=== PATIENT | female | born 1945 ===

== ENCOUNTER 2016-09-06 12:22 | Observation (INO) | payer MEDICARE, OTHER ==
[2016-09-06 12:50] VITALS: BMI 27.4
[2016-09-06] MEDS ORDERED: Sodium Chloride 0.9% 1,000 ML IV STA (13:18)
--- NOTE | 2016-09-06 13:22 | ED PDOC ---
Arrival/HPI - General Chief Complaint: Dizziness/Lightheaded Time Seen by Provider: 09/06/16 13:16 Historian: Patient - History of Present Illness Narrative History of Present Illness (Text): 09/06/16 13:19 A 70 year old female presents to the Emergency department complaining of sudden onset dizziness early this morning. Patient reports feeling better when lying down and worse upon standing. Patient denies nausea, vomiting, or any other complaints at this time. Time/Duration: 4-6 hours Symptom Onset: Sudden Symptom Course: Unchanged Activities at Onset: Rest Modifying Factors (Text): better when lying down, worse upon standing Context: Home Associated Symptoms (Text): none Past Medical History - Provider Review Nursing Documentation Reviewed: Yes - Infectious Disease Hx of Infectious Diseases: None - Tetanus Immunization Tetanus Immunization: Unknown - Cardiac Hx Hypertension: Yes Hx Pacemaker: No - Neurological Hx Paralysis: No - Renal Hx Renal Disorder: No - Endocrine/Metabolic Hx Hypothyroidism: Yes - Hematological/Oncological Hx Blood Transfusions: No Hx Blood Transfusion Reaction: No - Musculoskeletal/Rheumatological Hx Musculoskeletal Disorders: Yes - Psychiatric Hx Depression: Yes Hx Emotional Abuse: No Hx Physical Abuse: No Hx Substance Use: No - Surgical History Hx Section: Yes Hx Hysterectomy: Yes Hx Mastectomy: Yes (lumpectomy) - Anesthesia Hx Anesthesia: Yes Hx Anesthesia Reactions: No Hx Malignant Hyperthermia: No - Suicidal Assessment Feels Threatened In Home Enviroment: No Family/Social History - Physician Review Nursing Documentation Reviewed: Yes Family/Social History: No Known Family HX Smoking Status: Never Smoked Hx Alcohol Use: No Hx Substance Use: No Hx Substance Use Treatment: No Allergies/Home Meds Allergies/Adverse Reactions: Allergies No Known Allergies Allergy (Verified 09/06/16 12:50) Home Medications: Home Meds Medication Instructions Recorded Confirmed Atorvastatin [Lipitor] 20 mg PO DAILY 03/22/13 09/06/16 Zolpidem Tartrate [Zolpidem 10 mg PO HS 03/22/13 09/06/16 Tartrate] Escitalopram [Lexapro] 10 mg PO DAILY 01/02/14 09/06/16 Cyclobenzaprine [Flexeril] 5 mg PO DAILY 09/06/16 09/06/16 Ergocalciferol (Vitamin D2) 400 unit PO DAILY 09/06/16 09/06/16 [Vitamin D] Meloxicam 7.5 mg PO DAILY 09/06/16 09/06/16 [id number] Ethyl Esters 1 GM 1 gm PO DAILY 09/06/16 09/06/16 [Lovaza] Review of Systems - Physician Review All systems were reviewed & negative as marked: Yes Physical Exam - Physical Exam Narrative Physical Exam (Text): 09/06/16 13:22 - Review of Systems Constitutional: Normal. absent: Fatigue, Weight Change, Fevers Eyes: Normal ENT: Normal Respiratory: Normal absent: SOB, Cough, Sputum Cardiovascular: Normal absent: Chest pain, Palpitations, Syncope Gastrointestinal: Normal absent: Abdominal pain, Diarrhea, Nausea, Vomiting Genitourinary: Normal. absent: Dysuria, Frequency, Hematuria Musculoskeletal: Normal. absent: Arthralgias, Back Pain, Neck Pain Skin: Normal Neurological: Present: dizziness absent: Focal Weakness Endocrine: Normal Hemo/Lymphatic: Normal Psychiatric: Normal - Physical exam Patient appears age appropriate, speaking full sentences without difficulty - Systems Exam Head: Present: Atraumatic, Normocephalic Pupils: Present: PERRL Extraocular Muscles: Present: EOMI Conjunctiva: Present: Normal Mouth: Present: Moist Mucous Membranes Neck: Present: Normal Range of Motion. No: MIDLINE TENDERNESS, Paraspinal Tenderness Respiratory/Chest: Present: Clear to Auscultation, Good Air Exchange. No: Respiratory Distress, Accessory Muscle Use, Tachypneic Cardiovascular: Present: Regular Rate and Rhythm, Normal S1, S2, Peripheral Pulses Present. No: Murmurs Abdomen: Present: Normal Bowel Sounds, No: Tenderness, Peritoneal Signs, Rebound, Guarding, Distention Back: Present: Normal Inspection. No: Midline Tenderness, Paraspinal Tenderness Upper Extremity: Present: Normal Inspection. No: Cyanosis, Edema Lower Extremity: Present: Normal Inspection. No: Edema Neurological: HINTS exam normal Present: GCS=15, Speech Normal, cranial nerves II through XII fully intact with no cerebellar abnormality, neuro-sensory fully intact. No focal neurological deficits. Skin: Present: Warm, Dry, Normal Color. No: Rashes Lymphatic: Present: OX3, NI, NC Psychiatric: Present: Alert, Oriented x 3, Normal Insight, Normal Concentration Vital Signs Reviewed: Yes Vital Signs Temp Pulse Resp BP Pulse Ox 09/06/16 15:07 75 18 116/71 98 09/06/16 14:22 79 18 114/75 98 09/06/16 12:53 98.6 F 82 22 112/73 98 Temperature: Afebrile Blood Pressure: Normal Pulse: Regular Respiratory Rate: Normal Appearance: Positive for: Well-Appearing, Non-Toxic, Comfortable Pain Distress: None Mental Status: Positive for: Alert and Oriented X 3 Medical Decision Making ED Course and Treatment: 09/06/16 13:30 Impression: 70 year old female with sudden onset dizziness. No acute findings on physical exam. Differential Diagnosis include but are not limited to: vertigo Plan: -- EKG -- CT head w/o contrast -- Labs -- IV fluids, Valium -- Reassess and disposition Prior Visits: Notes and results from previous visits were reviewed. Patient last seen in the Emergency department on 10/04/15 for evaluation of UTI (sciatica). Patient was advised to follow up for urine results, call orthopedist for sciatica pain evaluation and to take medications. Progress Notes: EKG: Ordered, reviewed, and independently interpreted the EKG. Rate : BPM Rhythm : NSR Interpretation : No ST-segment elevations, normal intervals. Comparison : No previous EKG for comparison. 09/06/16 15:47 Cardiovascular Radiologic Technologist : Johan Dudley MD PROCEDURE: CT HEAD WITHOUT CONTRAST. HISTORY: VALDIVIA x2 weeks FINDINGS: HEMORRHAGE: No intracranial hemorrhage. BRAIN: No mass effect or edema. Chronic microvascular changes are seen VENTRICLES: Unremarkable. No hydrocephalus. CALVARIUM: Unremarkable. PARANASAL SINUSES: Unremarkable as visualized. No significant inflammatory changes. MASTOID AIR CELLS: Unremarkable as visualized. No inflammatory changes. OTHER FINDINGS: None. IMPRESSION: No acute findings 09/06/16 16:43 on reevaluation, pt states she still feels dizziness dw Dr. Hernandez, agrees with remote tele obs under his service, recommends MRI ( states will f/u result) pt aware of and agrees with plan - Lab Interpretations Lab Results: 09/06/16 13:30 09/06/16 13:30 Lab Results 09/06/16 13:30: WBC 7.3, RBC 4.65, Hgb 14.0, Hct 41.3, MCV 88.8, MCH 30.1, MCHC 33.9, RDW 12.7, Plt Count 304, MPV 9.1, Gran % 52.4, Lymph % (Auto) 37.1 H, [place] % (Auto) 8.3 H, Eos % (Auto) 1.9, Baso % (Auto) 0.3, Gran # 3.83, Lymph # 2.7, [place] # 0.6, Eos # 0.1, Baso # 0.02, Sodium 140, Potassium 4.3, Chloride 100 , Carbon Dioxide 30, Anion Gap 14, BUN 14, Creatinine 0.7, Est GFR ( Amer ) > 60, Est GFR (Non-Af Amer) > 60, Random Glucose 101, Calcium 10.1, Total Bilirubin 0.8, AST 28, ALT 31, Alkaline Phosphatase 63, Total Protein 7.9, Albumin 4.1, Globulin 3.8, Albumin/Globulin Ratio 1.1 I have reviewed the lab results: Yes - RAD Interpretation Radiology Orders: 09/06/16 13:20 HEAD W/O CONTRAST [CT] Stat - EKG Interpretation Interpreted by ED Physician: Yes Type: 12 lead EKG - Medication Orders Current Medication Orders: Meclizine HCl (Antivert) 25 mg PO STAT STA Stop: 09/06/16 16:34 Discontinued Medications Diazepam (Valium) 5 mg PO ONCE ONE Stop: 09/06/16 13:19 Last Admin: 09/06/16 14:10 Dose: 5 MG Behavioural Document 09/06/16 14:10 EQ (Rec: 09/06/16 14:43 EQ [email or web address] Maintenance Maintenance Dose No Nonmedicinal Nonmedicinal Interventions Redirect Behavior Behavior for Medication: Anxiety Sodium Chloride (Sodium Chloride 0.9%) 1,000 mls @ 1,000 mls/hr IV .Q1H STA Stop: 09/06/16 14:17 Last Admin: 09/06/16 14:10 Dose: 1,000 MLS/HR eMAR Start Stop Document 09/06/16 14:10 EQ (Rec: 09/06/16 14:43 EQ [email or web address]) Intravenous Solution Start Date 09/06/16 Start Time 14:10 - Scribe Statement The provider has reviewed the documentation as recorded by the Scribkaur Kelly All medical record entries made by the Scribe were at my direction and personally dictated by me. I have reviewed the chart and agree that the record accurately reflects my personal performance of the history, physical exam, medical decision making, and the department course for this patient. I have also personally directed, reviewed, and agree with the discharge instructions and disposition. Disposition/Present on Arrival - Present on Arrival Any Indicators Present on Arrival: No History of DVT/PE: No History of Uncontrolled Diabetes: No Urinary Catheter: No History of Decub. Ulcer: No History Surgical Site Infection Following: None - Disposition Have Diagnosis and Disposition been Completed?: Yes Diagnosis: Dizziness Disposition: HOSPITALIZED Disposition Time: 16:46 Patient Plan: Observation Patient Problems: Current Active Problems Problem Status Diagnosed Dizziness Acute Condition: FAIR
[2016-09-06 13:44] LABS: ADD MANUAL DIFF? NO
[2016-09-06 13:53] LABS: BASO # 0.02 K/mm3 (0.0-2.0); BASO % 0.3 % (0.0-3.0); EOS # 0.1 (0.0-0.7); EOS % 1.9 % (1.5-5.0); GRAN # 3.83 (1.4-6.5); GRAN % 52.4 % (50.0-68.0); HEMATOCRIT 41.3 % (36.0-48.0); LYMPH # 2.7 (1.2-3.4); LYMPH % 37.1 % (22.0-35.0); MEAN CELL VOLUME 88.8 fL (80.0-105.0); MEAN CORPUSCULAR HEMOGLOBIN 30.1 pg (25.0-35.0); MEAN CORPUSCULAR HGB CONC 33.9 g/dl (31.0-37.0); MEAN PLATELET VOLUME 9.1 fl (7.0-11.0); MONO # 0.6 (0.1-0.6); MONO % 8.3 % (1.0-6.0); PLATELET COUNT 304 10^3/uL (120.0-450.0); RED CELL DISTRIBUTION WIDTH 12.7 % (11.5-14.5); WHITE BLOOD COUNT 7.3 10^3/ul (4.5-11.0)
[2016-09-06 14:01] LABS: ALB/GLOB RATIO 1.1 (1.1-1.8); ALKALINE PHOSPHATASE 63 U/L (38-133); ALT/SGPT 31 U/L (7-56); AST/SGOT 28 U/L (15-39); BILIRUBIN,TOTAL 0.8 mg/dL (0.2-1.3); BLOOD UREA NITROGEN 14 mg/dL (7-21); CALCIUM 10.1 mg/dL (8.4-10.5); CARBON DIOXIDE 30 mmol/L (21-33); CHLORIDE 100 mmol/L (98-107); GFR AFRICAN-AMERICAN > 60; GLUCOSE,RANDOM 101 mg/dL (70-110); POTASSIUM 4.3 mmol/L (3.6-5.0); SODIUM 140 mmol/L (132-148); TOTAL PROTEIN 7.9 g/dL (5.8-8.3)
--- NOTE | 2016-09-06 15:32 | CT ---
PROCEDURE: CT HEAD WITHOUT CONTRAST. HISTORY: VALDIVIA x2 weeks COMPARISON: None available. TECHNIQUE: Axial computed tomography images were obtained through the head/brain without intravenous contrast. Radiation dose: Total exam DLP = 629 mGy-cm. This CT exam was performed using one or more of the following dose reduction techniques: Automated exposure control, adjustment of the mA and/or kV according to patient size, and/or use of iterative reconstruction technique. FINDINGS: HEMORRHAGE: No intracranial hemorrhage. BRAIN: No mass effect or edema. Chronic microvascular changes are seen VENTRICLES: Unremarkable. No hydrocephalus. CALVARIUM: Unremarkable. PARANASAL SINUSES: Unremarkable as visualized. No significant inflammatory changes. MASTOID AIR CELLS: Unremarkable as visualized. No inflammatory changes. OTHER FINDINGS: None. IMPRESSION: No acute findings
[2016-09-06] MEDS ORDERED: Gadodiamide 287 MG/ML VIAL (15ML) IV ONE (17:27)
--- NOTE | 2016-09-06 18:31 | MRI ---
PROCEDURE: MRI BRAIN WITH AND WITHOUT CONTRAST HISTORY: dizziness COMPARISON: None. TECHNIQUE: Multiplanar, multisequence MR images of the brain were obtained with and without intravenous contrast enhancement. FINDINGS: HEMORRHAGE: None DWI: Small focus of hyperintense DW I seen at the right coronal radiata centrum semiovale image 24 series 3 suspicious for lacunar infarct. BRAIN PARENCHYMA: No mass,mass effect or edema. Moderate white matter changes are noted likely represent chronic microvascular ischemic disease. ENHANCEMENT: No abnormal intracranial enhancement. VENTRICLES: Unremarkable. No hydrocephalus. CRANIUM: Unremarkable. ORBITS: Grossly unremarkable. PARANASAL SINUSES/MASTOIDS: Clear VASCULAR SYSTEM: Skull base flow voids intact. OTHER FINDINGS: None . IMPRESSION: Lacunar infarct seen at the right coronal radiata/centrum semiovale. Mild atrophy and moderate chronic microvascular ischemic disease. No evidence of enhancing mass lesion or abnormal enhancement in the brain.
[2016-09-06] MEDS ORDERED: Enoxaparin 40 mg Syringe SC STA (20:56)
--- NOTE | 2016-09-06 22:21 | HP ---
HISTORY OF PRESENT ILLNESS: The patient is a 70-year-old [place] female who came to the Emergency Ro om as a walk-in with complaining of intractable dizziness since last night. This morning, the patien t stated that after doing heavy yesterday, the patient started experiencing intractable dizziness and difficulty standing, difficulty walking because of the above. According to the ER physician's evalu ation note, the patient complained of sudden onset of dizziness, but the patient when she stands gets worse and the patient has been asymptomatic with this. REVIEW OF SYSTEMS: A 13-system review was done. Pertinent positive and negative dictated above. CODE STATUS: Full code. LIVING WILL AND ADVANCED DIRECTIVE: None. HEIGHT: 4 feet 9 inches. WEIGHT: 127 pounds. BMI: 27.5. ALLERGIES: None. HOME MEDICATIONS: 1. Meloxicam or Mobic 7.5 mg daily. 2. Flexeril 5 mg daily. 3. Lovaza 1 gram daily. 4. Vitamin D two 400 units daily. 5. Ambien, zolpidem 10 mg at bedtime. 6. Lexapro 10 mg daily. 7. Lipitor 20 mg daily. SOCIAL HISTORY: The patient denies smoking, denies alcohol, denies substance abuse. MENSTRUAL HISTORY: Postmenopausal. The patient denies being . PAST MEDICAL AND SURGICAL HISTORY: History of lumbar laminectomy and lumbar spine degenerative disk disease, history of chronic back pain problem, history of dyslipidemia, history of hypovitaminosis D, history of insomnia, history of questionable depression, history of dyslipidemia, history of obesity , history of cystitis, history of lumbar disk disease, history of obesity with elevated body mass ind ex of 27.5, history of hypovitaminosis D, history of hypercholesterolemia, history of hypovitaminosis D, history of microscopic hematuria, history of Escherichia coli urinary tract infection. Past medi anne history is also significant for history of L4-L5 laminectomy, history of lumbar spine degenerativ e disk disease, disk bulge spondylolisthesis, bilateral foramen stenosis, history of obesity, history of osteopenia, osteoporosis. Past medical history also significant for left lower lobe calcified gr anuloma. Past medical history is also significant for atelectasis, history of left lower lobe calcif ied granuloma, history of pancreatic head lipoma, history of obesity, history of sigmoid diverticulos is, history of lumbar spine degenerative disk disease. Past medical history is also significant for history of chronic microvascular small vessel ischemic disease of the brain, history of obesity, hist ory of cervical spine multilevel degenerative disk disease, disk bulging, spinal stenosis and neural foramen stenosis, history of multilevel degenerative disk disease of the cervical and thoracic spine, history of colonoscopy done in [address] Leon showing tubular adenoma of the ascending and transve rse colon, history of left thigh hemangioma, history of left ventricular ejection fraction of 82%, hi story of diastolic dysfunction, history of colonoscopy, biopsy, history of hemorrhoids, history of diverticulosis, . History of hemorrhoid, history of diverticulosis, history of ascending an d transverse colon polyp, history of diverticulosis, history of polypectomy. Past medical history is also significant for angioma of the left thigh status post excision. Past medical history is also s ignificant for lumbar spine degenerative disk disease with lumbar laminectomy, history of left thigh hemangioma excision. The patient's past medical history is significant for lumbar spine degenerative disk disease and chronic back pain problem, history of hypercholesterolemia, hypertriglyceridemia, h istory of hypovitaminosis D, history of insomnia, history of questionable depression. PHYSICAL EXAMINATION: GENERAL: The patient is seen in bed #11. The patient is lying in the bed. The patient is alert, aw francy, responsive. VITAL SIGNS: T-max 98.6, heart rate 75-82, blood pressure 112/73-116/71, respirations 18, O2 sat 98% . HEAD: Normocephalic, atraumatic. HEENT: Shows pink conjunctivae, anicteric sclerae. No oropharyngeal lesion. No neck rigidity. No facial asymmetry noted. The patient is unable to perform extraocular movement examination. The lamont ent is unable to follow the finger movement with her eyes. NECK: No neck rigidity. No facial asymmetry. Questionable soft carotid bruit. CHEST: Kyphosis. LUNGS: Shows no rales, crackles, or wheezing. CARDIOVASCULAR: Shows S1, S2, regular rhythm. ABDOMEN: Soft, positive bowel sounds. GENITALIA: Female. RECTAL: Deferred. EXTREMITIES: Shows no pitting edema, no calf tenderness, no Homans' sign. NEUROLOGIC: The patient is alert, awake, oriented x 3. Cranial nerves II-XII limited, but intact. SPINE: Examination shows positive laminectomy surgical scar. EXTREMITIES: Shows no pitting edema, no calf tenderness, no Homans' sign. VASCULAR: Palpable pulses. MUSCULOSKELETAL: Shows a body mass index of greater than 27. GAIT: Not tested. Romberg sign is negative. PSYCHIATRIC: Negative for anxiety, depression. Negative for auditory or visual hallucination. Nega tive for suicidal or homicidal ideation. DIAGNOSTICS: CBC is within normal limit. Chemistry is within normal limits with LFTs within normal limits. The patient had CT of the head done, which was negative except for chronic microvascular isc hemic disease. EKG done in the Emergency Room shows sinus rhythm with left axis deviation, no ST robbie vation. EMERGENCY ROOM COURSE: The patient was seen in the Emergency Room by Dr. Yen. The patient was given IV fluid, Valium 5 mg, Antivert 25 mg without any relief of symptoms. At that point, the ER ph ysician determined the patient will be placed in observation for intractable dizziness and vertigo. IMPRESSION AND PLAN: 1. Severe symptomatic intractable dizziness, etiology unclear. 2. Questionable benign positional vertigo. 3. Morbid obesity. 4. History of lumbar spine laminectomy and lumbar degenerative disk disease, history of cervical and thoracic spine degenerative disk disease, history of hypercholesterolemia, hypertriglyceridemia, his tory of hypovitaminosis D, history of insomnia and depression, history of obesity. 5. Left axis deviation. 6. Small vessel ischemic disease of the brain. 7. Possible left axis deviation. 8. Chronic microvascular ischemic disease of the brain with the right srivastava radiata, centrum semiov guerrero lacunar infarct, history of cerebral cortical atrophy of the brain, history of chronic microvascu lar ischemic disease of the brain. PLAN: At this time, since the patient's symptoms were not resolved, the ER physician made a determin ation to put the patient on observation. The patient has been ordered MRI of the brain and lipid galicia el, cardiac enzymes ordered, neurology consultation ordered. The patient is started on Antivert 12.5 mg 3 times a day, Ecotrin 81 mg daily. The patient will be resumed on Lexapro 10 mg daily, Lipitor 20 mg daily. The patient is started on GI prophylaxis. The patient is started on DVT prophylaxis. EKG has been ordered. Heart healthy diet ordered. The patient was seen in stretcher #11. The patie nt will be ordered thyroid profile, RPR. The patient will be ordered thyroid profile, RPR, vitamin D hydroxy, vitamin B12 will be ordered. The patient will be ordered thyroid panel, RPR, vitamin D25 h ydroxy, vitamin B12, folate, Lyme titers will be ordered. Neurology consultation has been requested. CPK, troponin has been ordered. At present, the patient's further management will be dependent upo n the patient's clinical condition, hemodynamic status, and as per patient response with therapeutic intervention. The patient was explained about the details of her medical condition, need for hospita lization, need for further diagnostic and therapeutic intervention was discussed and explained to the patient, which she acknowledged and understood. All questions and concerns answered. The patient was seen in the Emergency Room. The patient was seen in room 11. All questions and conc erns answered to the patient's satisfaction. Dictated, electronically signed, not read. Payam Hernandez MD cc: [id number] TT: 09/06/2016 22:20:59 in
[2016-09-06 22:34] LABS: CHOLESTEROL 169 mg/dL (130-200)
[2016-09-06 22:51] LABS: TROPONIN I < 0.01 ng/mL
[2016-09-06 22:54] LABS: FREE T4 0.82 ng/dL (0.78-2.19); T4 6.4 ug/dL (5.5-11.0)
[2016-09-06 23:07] LABS: THYROID STIMULATING HORMONE 0.94 mIU/mL (0.46-4.68)
[2016-09-07 01:21] VITALS: O2SAT 97
[2016-09-07 02:43] VITALS: RESP 20
[2016-09-07] MEDS ORDERED: Pantoprazole 40 mg EC Tab PO SCH (06:30)
[2016-09-07] MEDS ORDERED: Ibuprofen 100 MG/5 ML (BULK) PO STA (09:27)
[2016-09-07] MEDS ORDERED: Enoxaparin 40 mg Syringe SC SCH (10:00)
--- NOTE | 2016-09-07 11:03 | CON ---
DATE: 09/07/2016 REASON FOR CONSULTATION: Dizziness. HISTORY OF PRESENT ILLNESS: The patient is a 70-year-old female who came to the Emergency Room yeste rday with complaints of dizziness. When she woke up yesterday morning, she started experiencing dizz iness. Dizziness is described as a lightheaded feeling as well as spinning sensation. It was not as sociated with any nausea or vomiting. She was also experiencing difficulty with walking. She does h ave walking problems since she had back surgery and uses a cane; however, walking was more problemati c and that is why she came to the Emergency Room. Today, she feels better. Her dizziness is better. She is complaining of some neck pain. REVIEW OF SYSTEMS: Denies any headache. Positive for neck pain. Denies any chest pain, shortness o f breath, abdominal pain, constipation, diarrhea, dysuria, pyuria, cough, sputum production, hallucin ations, skin rash, any abnormal swelling. PAST MEDICAL HISTORY: Includes hypercholesterolemia, insomnia, cystitis, low back pain, anxiety. PAST SURGICAL HISTORY: Includes a history of lumbar spine laminectomy. MEDICATIONS: At home included meloxicam, Flexeril, Lovaza, vitamin D, Ambien, Lexapro, Lipitor. ALLERGIES: No known drug allergies. SOCIAL HISTORY: Denies smoking, use of alcohol or illicit drugs. FAMILY HISTORY: Reviewed and noncontributory to the case. PHYSICAL EXAMINATION: GENERAL: The patient is an elderly female lying on the bed in no acute distress. VITAL SIGNS: Her blood pressure is 139/91, heart rate is 69 per minute, breathing at a rate of 16 pe r minute, temperature is 97.7 degrees Fahrenheit. HEENT: Normocephalic, atraumatic. NECK: Supple. There are no carotid bruits. LUNGS: Clear. CARDIOVASCULAR: S1, S2 audible. No murmurs. ABDOMEN: Soft, nontender, bowel sounds present. NEUROLOGIC EXAMINATION: MENTAL STATUS: The patient is awake and alert, oriented to time, place, and person. Speech is fluen t. Naming and repetition normal. Memory and cognition are intact. CRANIAL NERVES: Pupils are 3 mm bilaterally reactive to light. Visual gomez are full. Extraocular movements are intact. There is no facial asymmetry. Palate is upgoing bilaterally and tongue is mi dline. MOTOR: Tone is normal. Power is 5/5 bilaterally in all extremities. Reflexes +2 and symmetrical. Plantars downgoing bilaterally. CEREBELLAR: [id number] shows no dysmetria. GAIT: Slow and slightly unsteady with patient having low back pain. SENSORY: Intact to soft touch and pinprick. LABORATORY DATA: Reviewed, shows WBC of 7.3, hemoglobin 14.0, hematocrit 41.3, platelets of 304. So dium is 140, potassium 4.3, chloride 100, carbon dioxide content 30, BUN of 14, creatinine 0.7, and g lucose of 101. She had MRI of the brain done, which shows lacunar infarcts seen at the right srivastava radiata, centrum semiovale, mild atrophy and moderate chronic microvascular ischemic disease. IMPRESSION: 1. Dizziness, which appears to be secondary to labyrinthine dysfunction. 2. Lacunar infarct in the right srivastava radiata. Age indeterminate. Possible subacute to chronic. 3. Cerebrovascular disease with chronic microvascular ischemic changes. 4. Gait dysfunction. 5. Low back pain with a history of laminectomy. RECOMMENDATIONS: 1. The patient to have a carotid Doppler study. 2. The patient to be continued on aspirin and statin. 3. The patient to have physical therapy for gait imbalance. 4. The patient to be continued on Antivert as it appears that it has helped her dizziness. 5. If patient's carotid Doppler study is negative, then she may be discharged with outpatient follow up. 6. We will give patient ibuprofen p.r.n. for her neck and low back pain. 7. Please continue other treatment. Thank you for the opportunity to participate in the care of this patient. Cortney Cramer MD cc: [id number] TT: 09/07/2016 11:03:35 Confirmation # [id number] Dictation # [id number]
--- NOTE | 2016-09-07 11:24 | CARD ---
APPROVED REPORT EKG Measurement Heart [id number] <Conclusion> Normal sinus rhythm Possible Left atrial enlargement Borderline ECG
--- NOTE | 2016-09-07 11:28 | CARD ---
APPROVED REPORT EKG Measurement Heart [id number] <Conclusion> Normal sinus rhythm Normal ECG
--- NOTE | 2016-09-07 12:09 | DS ---
The patient is now seen in room 262, bed 2. The patient is lying in the bed. The patient does complain of some dizziness, but significantly improved since yesterday. The patient's telemetry shows sinus rhythm. The patient is seen lying in room 266, bed 2. Overnight nurse's notes were reviewed. The patient was found to be asymptomatic, alert, awake, oriented x 3. PHYSICAL EXAMINATION: VITAL SIGNS: T-max 98.6. Telemetry shows sinus rhythm, heart rate 61-69-75, blood pressure 112/73 116/71, 139/91, 114/70, respirations 18, O2 sat 97-98%. HEAD: Normocephalic, atraumatic. HEENT: Shows pink conjunctivae, anicteric sclerae. No oropharyngeal lesion. Short stature. No facial asymmetry. NECK: No neck rigidity. NEUROLOGIC: Cranial nerves II-XII intact, but limited. Romberg sign is negative. LUNGS: Shows no rales, crackles, or wheezing. CARDIOVASCULAR: S1, S2, regular rhythm. ABDOMEN: Soft, positive bowel sounds. GENITALIA: Female. RECTAL: Deferred. EXTREMITIES: Show no pitting edema, no calf tenderness, no Homans signs. NEUROLOGIC: The patient is alert, awake, oriented x 3. Cranial nerves II-XII limited, but intact. PSYCHIATRIC: Negative for anxiety, depression. Negative for suicidal or homicidal ideation, negative for auditory or visual hallucination. VASCULAR: Palpable pulses. MUSCULOSKELETAL: Body mass index is 32. DIAGNOSTICS: Reviewed. Troponin is negative. CPK is negative. Cholesterol 169, LDL 79, HDL 55. TSH 0.94. T4 is 6.4. B12, folate pending. MRI of the brain was reviewed. EKG was reviewed from today which shows sinus rhythm, questionable left axis deviation, no ST elevation or depression noted. The patient seen by Dr. Cortney Cramer from neurology. His recommendation is the patient cleared for discharge after carotid Dopplers. FINAL IMPRESSION, PLAN, AND DISCHARGE DIAGNOSES: 1. Resolving to resolved intractable dizziness versus benign positional vertigo. 2. Severe symptomatic intractable dizziness versus benign positional vertigo ( resolved versus resolving). 3. Morbid obesity. 4. History of lumbar laminectomy, history of lumbar spine, cervical spine, thoracic spine multilevel degenerative disk disease, history of lumbar laminectomy. 5. Left axis deviation. 6. 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 7. Cerebral cortical atrophy of the brain with chronic microvascular ischemic disease of the brain. 8. Questionable left axis deviation. 9. History of lumbar spine laminectomy, lumbar spine degenerative disk disease , history of cervical and thoracic spine degenerative disk disease, history of hypercholesterolemia, hypertriglyceridemia, hypovitaminosis D, history of insomnia, depression, obesity. 1. Severe symptomatic intractable dizziness, etiology unclear. 2. Questionable benign positional vertigo. 3. Morbid obesity. 4. History of lumbar spine laminectomy and lumbar degenerative disk disease, history of cervical and thoracic spine degenerative disk disease, history of hypercholesterolemia, hypertriglyceridemia, history of hypovitaminosis D, history of insomnia and depression, history of obesity. 5. Left axis deviation. 6. Small vessel ischemic disease of the brain. 7. Possible left axis deviation. 8. Chronic microvascular ischemic disease of the brain with the right srivastava radiata, centrum semiovale lacunar infarct, history of cerebral cortical atrophy of the brain, history of chronic microvascular ischemic disease of the brain. PLAN: At this time, patient was seen by neurology. The patient's vitamin D level is pending. Lyme titers are pending. The patient's RPR is pending. CURRENT MEDICATIONS: 1. Antivert 12.5 mg 3 times a day. 2. Ecotrin 81 mg daily. 3. Lexapro 10 mg daily. 4. Lipitor 20 mg daily. 5. Lovenox 40 mg subQ daily. 6. Protonix 40 mg daily. The patient has been ordered carotid Dopplers. EKG was reviewed. Heart healthy diet, out of bed. The patient has been cleared for discharge by neurology after carotid Doppler. The patient is advised to follow up with PMD within 1 week. DISCHARGE MEDICATIONS: As per updated ambulatory orders which was transmitted to the pharmacy CURRENT MEDICATIONS: Ecotrin 81 mg daily. The patient is to resume Flexeril 5 mg daily, Lexapro 10 mg daily, Lipitor 20 mg daily, Lovaza 1 gram daily, meclizine 12.5 mg 3 times a day. The patient is to resume her Mobic or meloxicam 7.5 mg daily. Vitamin D2 400 units daily, Ambien 10 mg at bedtime. The patient was explained about the details of her medical condition, medical diagnosis, test results. All details were discussed and explained to the patient at length and all questions and concerns answered. The patient was advised follow up with PMD within 1 week. Time spent in the entire discharge process more than 45 minutes. Dictated and electronically signed, not read. Payam Hernandez MD cc: [id number] TT: 09/07/2016 12:08:33 amber BOLAND
[2016-09-07 13:07] VITALS: BP 122/81; PULSE 75; TEMP 98.6
[2016-09-07 13:43] LABS: FOLATE 10.7 ng/mL
--- NOTE | 2016-09-07 15:06 | US ---
PROCEDURE: Bilateral carotid artery duplex ultrasound HISTORY: Carotid stenosis lacunar infarct PHYSICIAN(S): Lionel Ramirez MD. TECHNIQUE: Duplex sonography and color-flow Doppler were used to evaluate the carotid bifurcations and limited segments of the vertebral arteries bilaterally. The exam is somewhat limited by tortuous vessels. FINDINGS: There is mild smooth heterogeneous plaque noted at the carotid bifurcations bilaterally. The peak systolic velocity in the proximal right internal carotid artery is 81 cm/sec. This corresponds to a 20 to 39% proximal right ICA stenosis. Normal systolic velocities are noted in the proximal right external carotid artery. There is antegrade flow in the right vertebral artery. The peak systolic velocity in the proximal left internal carotid artery is 56 cm/sec. This corresponds to a 20 to 39% proximal left ICA stenosis. Normal systolic velocities are noted in the proximal left external carotid artery. There is antegrade flow in the dominant left vertebral artery. IMPRESSION: 1. Bilateral 20-39% proximal ICA stenoses. 2. Antegrade flow in both vertebral arteries.
[2016-09-09 08:16] LABS: LYME DISEASE SCREEN <0.90 index
[2016-09-09 13:40] LABS: 18 KD (IGG) BAND Nonreactive; 23 KD (IGG) BAND Nonreactive; 23 KD (IGM) BAND Reactive; 28 KD (IGG) BAND Nonreactive; 30 KD (IGG) BAND Nonreactive; 39 KD (IGG) BAND Nonreactive; 39 KD (IGM) BAND Nonreactive; 41 KD (IGG) BAND Reactive; 41 KD (IGM) BAND Nonreactive; 45 KD (IGG) BAND Nonreactive; 58 KD (IGG) BAND Nonreactive; 66 KD (IGG) BAND Nonreactive; 93 KD (IGG) BAND Nonreactive; LYME DISEASE INTERP (IGG) Negative (Negative)
[2016-09-10 20:42] LABS: LYME IGG NEGATIVE (NEGATIVE)
[2016-09-10 20:59] LABS: LYME IGM NEGATIVE (NEGATIVE)
== END 2016-09-07 19:30 | disposition home or self-care (01) ==
LOC: ED 12:22 → ERH 16:48 → 2RNO 09-07 01:30
PROVIDERS: ADMIT Internal Medicine; ATTEND Internal Medicine
DX: R42 Dizziness and giddiness (principal); I67.82 Cerebral ischemia; R26.2 Difficulty in walking, not elsewhere classified; E78.5 Hyperlipidemia, unspecified; M51.36 Other intervertebral disc degeneration, lumbar region; G47.00 Insomnia, unspecified; G89.29 Other chronic pain; E55.9 Vitamin D deficiency, unspecified; M81.0 Age-related osteoporosis without current pathological fracture; E66.01 Morbid (severe) obesity due to excess calories; M54.2 Cervicalgia; E78.00 Pure hypercholesterolemia, unspecified; F41.9 Anxiety disorder, unspecified; K57.30 Diverticulosis of large intestine without perforation or abscess without bleeding; M51.34 Other intervertebral disc degeneration, thoracic region; M50.30 Other cervical disc degeneration, unspecified cervical region
CPT/HCPCS: 70450; 70553; 80053; 80061; 82306; 82550; 82607; 82746; 84439; 84443; 84484; 85025; 86592; 86617; 86618; 93005; 93880; 96372; 97162; 97530; 99285; A9579; G0378; G8978; G8979; G8980; J1650; J7040